=== PATIENT | male | born 1960 | race Caucasian/White ===

== ENCOUNTER 2019-06-25 09:17 | Emergency (ER) | payer SELFPAY ==
[~2019-06-25] VITALS: Ht 177.8 cm; Wt 116.1 kg
[2019-06-25] MEDS ORDERED: CLIN300C8 PO (09:51)
[2019-06-25] MEDS ORDERED: CLINDAMYCIN IM 600 MG/4 ML VIAL. IM ONE (10:00)
[2019-06-25] MEDS ORDERED: LIDOCAINE 1%/EPI 1:100,000 20 ML VIAL. INJ ONE (10:00)
--- NOTE | 2019-06-25 10:32 | PHYS DOC ---
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 No specific trauma that he identifies he denies a history of diabetes symptoms are moderate pain is dull nonradiating worse with palpation Review of Systems Review of Systems Constitutional: Denies fever or chills [] Eyes: Denies change in visual acuity, redness, or eye pain [] Cardiovascular: No additional information not addressed in HPI [] GI: Denies abdominal pain, nausea, vomiting, bloody stools or diarrhea [] Neurologic: Denies headache, focal weakness or sensory changes [] Endocrine: Denies polyuria or polydipsia [] All other systems were reviewed and found to be within normal limits, except as documented in this note. Current Medications Current Medications Current Medications Medications (Trade) Dose Ordered Sig/Yudith Start Time Stop Time Status Last Admin Dose Admin Clindamycin Phosphate (Cleocin Im) 300 mg 1X ONCE 06/25/19 10:00 06/25/19 10:01 DC 06/25/19 10:07 300 MG Lidocaine/ Epinephrine (LIDOCAINE 1%-EPI 1:100,000 Multi-Dose) 20 ml 1X ONCE 06/25/19 10:00 06/25/19 10:01 DC 06/25/19 10:07 20 ML Allergies Allergies Allergies Coded Allergies Type Severity Reaction Last Updated Verified Bleach (Sodium Hypochlorite) Allergy Intermediate 06/25/19 Yes Physical Exam Physical Exam Constitutional: Well developed, well nourished, no acute distress, non-toxic appearance. [] HENT: Normocephalic, atraumatic, bilateral external ears normal, oropharynx moist, no oral exudates, nose normal. [] Eyes: PERRLA, EOMI, conjunctiva normal, no discharge. [] Neck: Normal range of motion, no tenderness, supple, no stridor. [] Cardiovascular:Heart rate regular rhythm, no murmur [] Lungs & Thorax: Bilateral breath sounds clear to auscultation [] Abdomen: Bowel sounds normal, soft, no tenderness, no masses, no pulsatile masses. [] Skin: There is approximately 3 x 3 cm area abscess with fluctuance and some surrounding induration of the left inguinal region that is just lateral to the junction of the scrotum the scrotum is not involved the perineum is not involved Back: No tenderness, no CVA tenderness. [] Extremities: No tenderness, no cyanosis, no clubbing, ROM intact, no edema. [] Neurologic: Alert and oriented X 3, normal motor function, normal sensory function, no focal deficits noted. [] Psychologic: Affect normal, judgement normal, mood normal. [] Current Patient Data Vital Signs Vital Signs Date Time Temp Pulse Resp B/P (MAP) Pulse Ox O2 Delivery O2 Flow Rate FiO2 06/25/19 09:30 98.0 113 16 131/76 (94) 96 Room Air 98.0 107 ON REEVAL EKG EKG [] Radiology/Procedures Radiology/Procedures [] Course & Med Decision Making Course & Med Decision Making Pertinent Labs and Imaging studies reviewed. (See chart for details) []Procedure note: Verbal consent was obtained area was prepped and draped in the usual sterile fashion lidocaine with epinephrine was used for anesthesia 1 cm incision was made drainage of approximately 6 ML of pus was returned loculations explored wound was packed patient was given wound care instructions and follow- up precautions and voiced understanding Noted mild tachycardia on my reevaluation when the patient was resting after lidocaine heart rate was 107 patient does not have a fever think this is appropriate for outpatient management. Return precautions DISCUSSED Dragon Disclaimer Dragon Disclaimer This electronic medical record was generated, in whole or in part, using a voice recognition dictation system. Departure Departure Impression: Primary Impression: Abscess Disposition: 01 HOME, SELF-CARE Condition: STABLE Patient Instructions: Abscess, [id number] Scripts Clindamycin Hcl (CLINDAMYCIN HCL) 300 Mg Capsule 1 CAP PO TID, #30 CAP Prov: ROXANNE RICE MD 06/25/19 ROXANNE RICE MD Jun 25, 2019 10:32
[2019-06-25 10:50] VITALS: BP 101/53
== END 2019-06-25 10:50 | disposition home or self-care (01) ==
LOC: ER 09:17
DX: L02.214 Cutaneous abscess of groin (principal); F10.20 Alcohol dependence, uncomplicated; Z88.8 Allergy status to other drugs, medicaments and biological substances; Y90.9 Presence of alcohol in blood, level not specified
CPT/HCPCS: 10060; 96372; 99283; J3490